=== PATIENT | male | born 1985 | race Caucasian/White ===

== ENCOUNTER 2016-05-26 02:36 | Emergency (ER) | payer OTHER ==
[~2016-05-26] VITALS: Ht 175.3 cm; Wt 95.3 kg
[2016-05-26 02:41] VITALS: BP 149/105
[2016-05-26] MEDS ORDERED: ALLEGRA ALLERG180 M1 PO (02:45)
--- NOTE | 2016-05-26 02:51 | ED EYE COMPLAINT ---
History of Present Illness General Chief Complaint: Eye Problems Stated Complaint: EYE SWELLING,BURNING,? ALLERGIC REACTION Source: patient Exam Limitations: no limitations Vital Signs & Intake/Output Vital Signs & Intake/Output Vital Signs Date Time Temp Pulse Resp B/P Pulse O2 O2 Flow FiO2 Ox Delivery Rate 05/26 0241 98.1 88 20 149/105 96 Room Air Allergies Uncoded Allergies: PET DANDER (UNKNOWN 05/26/16) Reconcile Medications Fexofenadine HCl (Joann Allergy) 180 MG TABLET 1 TAB PO DAILY SEASONAL ALLERGIES (Reported) Polytrim (Polytrim Eye Drops) 10,000 UNIT-1 MG/ML DROPS 2 GTT OPH Q6 eye infection/both eyes x 7 days Triage Note: TRIAGE: PT TO ER WITH MOTHER C/C ?ALLERGIC REACTION TO BILATERAL EYES, ONSET 00:30 AFTER USING STRIDEX FACIAL PAD. IRRIGATED WITH WATER AND THOUGHT IT HAD IMPROVED. FELL ASLEEP AND WOKE UP WITH REDNESS, SWELLING AND TEARING TO BILATERAL EYES. Triage Nurses Notes Reviewed? yes Onset: Gradual Duration: hour(s): Timing: recent history Injury Environment: home Severity: moderate Modifying Factors: Improves With: rest. Left Eye Associated Symptoms: burning, pain, sensitivity to light Right Eye Associated Symptoms: burning, pain, sensitivity to light HPI: 30 yo gentleman presents with bilateral eye burning after washing his face with stridex facial pads. He notes that that he washed his face at around midnight, and felt burning discomfort 30 minutes later. He notes photophobia, increased watering, no john discharge or significant vision change. He is otherwise well. Past History Travel History Traveled to [place] past 21 day No Medical History Any Pertinent Medical History? see below for history Neurological: NONE EENT: NONE Cardiovascular: NONE Respiratory: asthma Gastrointestinal: NONE Hepatic: NONE Renal: NONE Musculoskeletal: NONE Psychiatric: NONE Endocrine: NONE Blood Disorders: NONE Cancer(s): NONE CARE COORDINATOR/Reproductive: NONE Surgical History Surgical History: non-contributory Psychosocial History What is your primary language Salvadorean Tobacco Use: Never used ETOH Use: occasional use Illicit Drug Use: denies illicit drug use Family History Hx Contributory? No Review of Systems Review of Systems Constitutional: Reports: no symptoms. Eyes: Reports: no symptoms. Ear: Reports: no symptoms. Nose: Reports: no symptoms. Mouth: Reports: no symptoms. Throat: Reports: no symptoms. Respiratory: Reports: no symptoms. Cardiovascular: Reports: no symptoms. GI: Reports: no symptoms. Genitourinary: Reports: no symptoms. Musculoskeletal: Reports: no symptoms. Skin: Reports: no symptoms. Neurological/Psychological: Reports: no symptoms. Hematologic/Endocrine: Reports: no symptoms. Immunologic/Allergic: Reports: no symptoms. All Other Systems: Reviewed and Negative Physical Exam General Appearance: well developed/nourished, mild distress General Inspection: conjunctival injection Eyelid: normal inspection Conjunctiva/Sclera: injected Cornea: normal inspection EOM: intact Pupil: normal accommodation, normal pupil, PERRL General Inspection: normal inspection Eyelid: normal inspection Conjunctiva/Sclera: normal inspection, injected Cornea: normal inspection EOM: intact Pupil: normal accommodation, normal pupil, PERRL Physical Exam Head: atraumatic Nose: normal inspection Mouth/Throat: normal mouth inspection Neck: normal inspection, supple Cardiovascular/Respiratory: normal breath sounds, regular rate/rhythm Neurologic/Psych: awake, alert, oriented x 3, normal mood/affect Skin: intact, normal color, warm/dry Progress Differential Diagnosis: corneal abrasion, conjunctivitis Plan of Care: pt feels better with tetracaine applied.sent in rx for polytrim. pt referred to optho in the AM. Departure Departure Disposition: HOME OR SELF CARE Condition: Stable Clinical Impression Primary Impression: Conjunctivitis Referrals: PATIENT HAS NO PRIMARY CARE DR (PCP/Family) Departure Forms: Customer Survey General Discharge Information Prescriptions: Current Visit Scripts Polytrim (Polytrim Eye Drops) 2 GTT OPH Q6 #20 ML x 7 days Comments stable exam... pt feels better after tetracaine... follow up with ophto in AM.
[2016-05-26] MEDS ORDERED: POLYTRIM EYE DR10 ML OPH (03:27)
== END 2016-05-26 03:40 ==
LOC: ERH 02:36
DX: H10.9 Unspecified conjunctivitis (principal)